=== PATIENT | male | born 1970 | race Caucasian/White ===

== ENCOUNTER 2020-09-18 07:45 | Observation (INO) | payer OTHER, SELFPAY ==
[2020-09-18] MEDS ORDERED: Fentanyl 100 MCG/2 ML VIAL ONE ×4 (09:39→13:15)
[2020-09-18] MEDS ORDERED: Midazolam HCl 2 mg/2 ml Vial ONE (09:39)
[2020-09-18] MEDS ORDERED: PROPOFOL 200 MG/20 ML VIAL ONE (10:17)
[2020-09-18] MEDS ORDERED: Ropivacaine 2% HCl/PF (20 MG/10 ML VIAL) ONE (10:17)
[2020-09-18] MEDS ORDERED: Ropivacaine 0.5% HCl/PF (150 MG/30 ML VIAL) ONE (10:17)
[2020-09-18] MEDS ORDERED: Lidocaine 1% PF 5 ML VIAL ONE (10:17)
[2020-09-18] MEDS ORDERED: Glycopyrrolate 0.2 MG/ML 5 ML SYRINGE ONE (10:17)
[2020-09-18] MEDS ORDERED: Rocuronium Bromide 10 MG/ML (10ML VIAL) ONE (10:17)
[2020-09-18] MEDS ORDERED: Ondansetron PF 4 MG/2 ML Vial ONE (10:17)
[2020-09-18] MEDS ORDERED: Dexamethasone 20 MG/5 ML VIAL ONE (10:17)
[2020-09-18] MEDS ORDERED: Bupivacaine HCl 0.5%/Epinephrine 1:200,000/PF 30 ml Vial ONE (10:17)
[2020-09-18] MEDS ORDERED: HYDROmorphone 2 MG/ML VIAL ONE (11:00)
[2020-09-18] MEDS ORDERED: Ondansetron PF 4 MG/2 ML Vial IVP PRN ×2 (12:36→13:00)
[2020-09-18] MEDS ORDERED: Ondansetron ODT 4 MG TAB PO PRN (12:36)
[2020-09-18] MEDS ORDERED: HYDROcodone/Acetaminophen 10/325 mg Tablet PO PRN (12:36)
[2020-09-18] MEDS ORDERED: Senokot S 8.6-50 MG TAB PO PRN (12:36)
[2020-09-18] MEDS ORDERED: Acetaminophen 325 MG TAB PO PRN (12:36)
[2020-09-18] MEDS ORDERED: Bisacodyl 5 MG TAB PO PRN (12:36)
[2020-09-18] MEDS ORDERED: Morphine 4 MG/ML VIAL SLOW IVP PRN (12:41)
[2020-09-18] MEDS ORDERED: Promethazine HCl 25 MG/ML VIAL IM PRN ×2 (12:45→13:00)
[2020-09-18] MEDS ORDERED: Ondansetron HCl/PF 4 MG/2 ML Vial IVP PRN (12:45)
[2020-09-18] MEDS ORDERED: Promethazine HCl 25 MG/ML VIAL SLOW IVP PRN (12:45)
[2020-09-18] MEDS ORDERED: CEFAZOLIN 2 GM in Premix Bag 1 BAG IVPB SCH (12:45)
[2020-09-18] MEDS ORDERED: Fentanyl 100 MCG/2 ML VIAL SLOW IVP PRN (12:59)
[2020-09-18] MEDS ORDERED: Ketorolac Tromethamine 30 MG/ML VIAL IVP PRN (13:00)
[2020-09-18] MEDS ORDERED: traMADol HCl 50 MG TAB PO PRN (13:00)
[2020-09-18] MEDS ORDERED: Zolpidem Tartrate 5 MG TAB PO PRN (13:00)
[2020-09-18] MEDS ORDERED: Ropivacaine 0.2% 550 ML 550 ML NERVE BLCK SCH (13:00)
[2020-09-18] MEDS ORDERED: HYDROcodone/Acetaminophen 10/325 mg Tablet ONE (14:11)
[2020-09-18 17:12] VITALS: BMI 33.6
[2020-09-18] MEDS: HYDROcodone/Acetaminophen 10/325 mg Tablet PO PRN (18:35)
[2020-09-18] MEDS: Famotidine 20 MG TAB PO SCH (20:24)
[2020-09-19] MEDS: Famotidine 20 MG TAB PO SCH ×2 (09:22→20:18)
[2020-09-19] MEDS: HYDROcodone/Acetaminophen 10/325 mg Tablet PO PRN ×3 (11:40→20:17)
[2020-09-19] MEDS: traMADol HCl 50 MG TAB PO PRN (18:01)
[2020-09-19] MEDS: Ketorolac Tromethamine 30 MG/ML VIAL IVP SCH (18:05)
[2020-09-20] MEDS: Ketorolac Tromethamine 30 MG/ML VIAL IVP SCH ×3 (00:04→11:39)
[2020-09-20] MEDS: traMADol HCl 50 MG TAB PO PRN (00:08)
[2020-09-20] MEDS: HYDROcodone/Acetaminophen 10/325 mg Tablet PO PRN ×3 (03:33→12:51)
[2020-09-20] MEDS: Famotidine 20 MG TAB PO SCH (09:16)
[2020-09-20 11:38] VITALS: BP 121/79; TEMP 98.4
[2020-09-20] MEDS ORDERED: Aspirin 81 mg Enteric Coated Tablet PO SCH (21:00)
== END 2020-09-20 13:08 | disposition home or self-care (01) ==
LOC: SDC 07:45 → T4-A 12:36
PROVIDERS: ADMIT Orthopaedic Surgery; ATTEND Orthopaedic Surgery
PROC: 0QSG04Z Reposition Right Tibia with Internal Fixation Device, Open Approach (ICD-10-PCS; principal; 2020-09-18)
PROC: 3E0T3BZ Introduction of Anesthetic Agent into Peripheral Nerves and Plexi, Percutaneous Approach (ICD-10-PCS; 2020-09-18)
PROC: 3E0T3BZ Introduction of Anesthetic Agent into Peripheral Nerves and Plexi, Percutaneous Approach (ICD-10-PCS; 2020-09-18)
DX: S89.191A Other physeal fracture of lower end of right tibia, initial encounter for closed fracture (principal); S82.831D Other fracture of upper and lower end of right fibula, subsequent encounter for closed fracture with routine healing; G89.18 Other acute postprocedural pain; Z87.891 Personal history of nicotine dependence; W19.XXXA Unspecified fall, initial encounter
CPT/HCPCS: 76000; 96374; 96376; A4306; C1713; G0378; J0690; J1100; J1170; J1885; J2250; J2405; J2704; J2795; J3010